=== PATIENT | female | born 1960 | race Caucasian/White ===

== ENCOUNTER → 2020-07-20 | Outpatient (CLI) | payer OTHER ==
[~2020-07-20] MED LIST: COLACE 100MG C100 MG PO; PROCTOCREAM-HC30 G1 TP
== END ==
LOC: KOH-I 16:30
DX: R51.9 Headache, unspecified (principal); G31.9 Degenerative disease of nervous system, unspecified
CPT/HCPCS: 70450

== ENCOUNTER → 2020-10-31 | Outpatient (CLI) | payer OTHER | LOC: KOH-I 14:34 | DX: R07.1 Chest pain on breathing (principal); S22.42XA Multiple fractures of ribs, left side, initial encounter for closed fracture; W19.XXXA Unspecified fall, initial encounter | CPT/HCPCS: 71046; 71100 ==

== ENCOUNTER → 2021-05-25 | Outpatient (CLI) | payer OTHER ==
[~2021-05-25] VITALS: Ht 162.6 cm; Wt 96.6 kg
== END ==
LOC: EROP 11:44
DX: U07.1 COVID-19 (principal)
CPT/HCPCS: 96365

== ENCOUNTER → 2022-02-21 | Outpatient (CLI) | payer OTHER | LOC: MRI 15:10 | DX: R51.9 Headache, unspecified (principal); Z82.49 Family history of ischemic heart disease and other diseases of the circulatory system | CPT/HCPCS: 70544 ==